=== PATIENT | female | born 1990 | race Caucasian/White ===

== ENCOUNTER 2021-10-10 09:54 | Day surgery (SDC) | payer OTHER ==
[2021-10-10 10:26] VITALS: BMI 45.1
[2021-10-10 11:23] LABS: Fetal Membranes Rupture No Membranes Rupture (No Rupture)
[2021-10-10] MEDS ORDERED: hydrALAZINE 20 MG/ML VIAL SLOW IVP PRN (12:46)
== END 2021-10-10 14:00 | disposition home health service (06) ==
LOC: CSHLD/OP 09:54
PROVIDERS: ATTEND Obstetrics & Gynecology
DX: O42.913 Preterm premature rupture of membranes, unspecified as to length of time between rupture and onset of labor, third trimester (principal); Z3A.36 36 weeks gestation of pregnancy; Z86.16 Personal history of COVID-19; Z86.19 Personal history of other infectious and parasitic diseases; Z88.0 Allergy status to penicillin; Z79.899 Other long term (current) drug therapy; Z90.49 Acquired absence of other specified parts of digestive tract
CPT/HCPCS: 76819; 84112; 87480; 87510; 87660; 99284